=== PATIENT | female | born 1975 | race Caucasian/White ===

== ENCOUNTER 2023-04-10 12:48 | Emergency (ER) | payer SELFPAY, OTHER ==
[2023-04-10 12:49] VITALS: BP 145/110; PULSE 121; RESP 18; TEMP 35.9; O2SAT 98; BMI 25.9
[2023-04-10 13:09] VITALS: BP 139/90; PULSE 108; RESP 16; O2SAT 98
--- NOTE | 2023-04-10 13:45 | RAD_ITS ---
HISTORY: chest pain. TECHNIQUE: XR Chest 1 View. COMPARISON: None. FINDINGS: CARDIOMEDIASTINAL BORDERS: Cardiac silhouette within normal limits in size. Mediastinal contour unremarkable. LUNGS: Radiographically clear. PLEURA: No pleural effusion or pneumothorax seen. OSSEOUS STRUCTURES: Unremarkable. RAD/Chest 1 View (Portable) IMPRESSION: No acute cardiopulmonary process identified. Electronically Signed: Terri Mckay MD at 13:58 EDT ,
[2023-04-10 13:59] LABS: Absolute Lymphocyte Count 2.23 X10^3/uL (0.83-4.51); Absolute Neutrophil Count 4.9 X10^3/uL (2.0-7.7); Basophil# 0.05 X10^3/uL; Basophil% 0.6 % (0-1); Eosinophil# 0.44 X10^3/uL; Eosinophils% 5.3 % (0-5); Hemoglobin 15.9 g/dL (12.0-15.0); Lymphocyte # 2.23 X10^3/ul (0.83-4.51); Lymphocyte % 26.8 % (19-41); Mean Corp Hgb Conc 33.1 g/dL (32-36); Mean Corpuscular Hgb 30.4 pg (27.0-32.0); Mean Corpuscular Volume 91.8 fL (81-99); Mean Platelet Vol. 10.5 fl (6.2-12.0); Monocyte% 8.4 % (0-10); NRBC Flagged by Analyzer 0 % (0-5); Neutrophil # 4.85 X10^3/uL (2.7-7.7); Neutrophil % 58.3 % (47-70); Platelet Count 218 K/mm3 (150-450); RBC Distribution Width CV 12.3 % (11.6-14.6); RBC Distribution Width SD 41.4 fl (35.1-43.9); Red Blood Count 5.23 M/mm3 (4.2-5.4); White Blood Count 8.3 K/mm3 (4.4-11.0)
[2023-04-10 14:14] LABS: Anion Gap 12 (5-15); BUN 12 mg/dL (7-18); Calcium,Total 10.1 mg/dL (8.5-10.1); Chloride 112 mmol/L (98-107); EST Glomerular Filtration Rate 95 mL/min (>60); Est Glom Filt Rate - Afr Amer 115 mL/min (>60); Estimated Creatinine Clearance 98.69 ml/min; Glucose 174 mg/dL (74-106); Potassium 3.7 mmol/L (3.5-5.1); Sodium Level 137 mmol/L (136-145); Troponin-I HS (w/2H Reflex) 3 pg/mL (3.0-54.0)
--- NOTE | 2023-04-10 15:26 | ED.VIS.CHEST ---
HPI History of Present Illness Chief Complaint: Chest Pain Narrative Narrative: 47-year-old female presenting with chest pains which are intermittent. She initially stated that they have been happening for 4 to 5 days but after speaking with her these have been going on for months. She states that she has not seen her primary care physician for these issues. She also complains of bilateral leg pains which are progressive over the last couple of months. They are diffuse and circumferential. She does not know why she has this. Patient states that she does not any cardiac history. Denies fevers or chills. She states that they see a nurse practitioner for her diabetes and last time she was supposed to get blood work her nurse practitioner told her she probably had a cold or flu and told her we did not want to check labs at that time. Patient denies fever, chills, cough. She does time feel shortness of breath. [facility] Medical History Diabetes Allergy/AdvReac Type Severity Reaction Status Date / Time acetaminophen Allergy Shortness Verified 04/10/23 12:51 [From Pamprin Max] of breath aspirin [From Pamprin Max] Allergy Shortness Verified 04/10/23 12:51 of breath caffeine [From Pamprin Max] Allergy Shortness Verified 04/10/23 12:51 of breath Social History Smoking Status: Never smoker [facility] ED Constitutional Constitutional ED: Denies chills, fever(s) or sweats Eyes Eyes: Denies blurry vision or change in vision ENT ENT ED: Denies ear pain or sore throat Cardiovascular Cardiovascular: Reports chest pain and palpitations; Denies racing heartbeat Respiratory/Chest Respiratory/Chest: Reports dyspnea; Denies cough or sputum Gastrointestinal Gastrointestinal: Denies abdominal pain, constipation, diarrhea, nausea or vomiting Genitourinary Genitourinary ED: Denies dysuria, hematuria or urinary frequency Musculoskeletal Musculoskeletal: Reports other Details: Bilateral leg pain ; Denies arthralgias, myalgias or neck pain Integumentary Denies abscess, Abrasions or rash Neurologic Neurologic: Denies headache(s), paresthesias or weakness Psychiatric Psychiatric: Denies anxiety, depression, suicidal ideation or suicidal thoughts Endocrine Endocrinology: Denies polydipsia or polyuria EXAM Physical Exam Const Vital Signs: 04/10/23 12:49 04/10/23 13:09 04/10/23 13:09 Temperature 96.7 F L Temperature Source Temporal Pulse Rate 121 H 108 H Respiratory Rate 18 16 Respiratory Effort Normal Non-Labored Blood Pressure 145/110 H 139/90 H Blood Pressure Mean 121 106 Pulse Ox 98 98 Oxygen Delivery Method Room Air Room Air 04/10/23 13:44 Temperature Temperature Source Pulse Rate Respiratory Rate Respiratory Effort Blood Pressure Blood Pressure Mean Pulse Ox Oxygen Delivery Method Room Air Positive well nourished General Appearance ED: NAD HEENT Reports moist mucous membranes normocephalic and atraumatic Eyes PERRL and EOMs intact bilaterally Resp normal respiratory effort and clear to auscultation bilaterally Auscultation: Negative for rales, rhonchi or wheezes Cardio regular rhythm Rate: tachycardic Back/Spine no CVA tenderness Neuro oriented x3 and CN's II-XII intact bilaterally Sensorium / Orientation: awake and alert Motor Exam: strength 5/5 throughout Psych mental status grossly normal Skin no rashes or lesions noted Heart Score History: Slightly/Non-Suspicious ECG: Normal Age: >45 - <65 years Risk Factors: 1 or 2 Risk Factors Troponin: </= Normal Limit Score: 2 MDM MDM MDM Narrative Medical decision making narrative: [id number] female presenting with intermittent chest pains for months. Has not seen anybody for this. She states she tried to call her primary care provider today but he did not have any office times for her. He recommended she go to the emergency room when she went to the urgent care and urgent care sent her to the emergency room. Differential includes ACS, pneumonia, dehydration, electrolyte, anxiety, anemia. Considered PE however the patient is not having sharp pleuritic pain she is having some tightness that radiates into the left arm occasionally. Most the time is localized to the left side of the chest. CBC was obtained and shows no leukocytosis. Hemoglobin stable at 15.9. Platelets are normal at 218. Renal function and electrolytes unremarkable. High-sensitivity troponin is 3. EKG shows a sinus rhythm at 111 bpm on my interpretation. No evidence of ischemia. Chest x-ray on my interpretation shows no acute process. At this point the patient has a negative work-up. Her symptoms do sound chronic and I recommend she follow-up with her PCP. Patient was given Ultram here in the ER for leg pains but recommended she follow-up with her PCP for further treatment as it is likely neuropathy. Patient is understanding. Impression: 1. Chest pain 2. Weakness 3. Neuropathy Lab Data Attestation: I reviewed the patient's lab results. Labs: Laboratory Results - last 24 hr 04/10/23 13:20 WBC 8.3 RBC 5.23 Hgb 15.9 H Hct 48.0 H MCV 91.8 MCH 30.4 MCHC 33.1 RDW Std Deviation 41.4 RDW Coeff of Elias 12.3 Plt Count 218 MPV 10.5 Immature Gran % (Auto) 0.600 Neut % (Auto) 58.3 Lymph % (Auto) 26.8 [place] % (Auto) 8.4 Eos % (Auto) 5.3 H Baso % (Auto) 0.6 Absolute Neuts (auto) 4.9 Absolute Lymphs (auto) 2.23 Nucleated RBC % 0 Sodium 137 Potassium 3.7 Chloride 112 H Carbon Dioxide 13.0 L Anion Gap 12 BUN 12 Creatinine 0.70 Estim Creat Clear Calc 98.69 Est GFR (MDRD) Af Amer 115 Est GFR (MDRD) Non-Af 95 BUN/Creatinine Ratio 17.0 Glucose 174 H Calcium 10.1 Troponin I High Sens 3 Radiography Diagnostic Testing: Clinical Impression(s) from Imaging Studies Chest X-Ray 04/10/23 13:45 IMPRESSION: No acute cardiopulmonary process identified. Electronically Signed: Terri Mckay MD at 13:58 EDT Reading Location ID and State: [facility] / [place] Tel , Service support , Discharge Plan Triage Chief Complaint: Chest Pain ED Provider: Gerardo Flores Dx/Rx/DC Orders Instructions: ED Chest Pain, Uncertain Cause, ED Leg Spasm Primary Care Provider: Montrell Waldrop Referrals: Montrell Waldrop DO [Primary Care Provider] - Disposition Disposition: Home, Self Care
[2023-04-10] MEDS: traMADol 50 MG Tablet PO (15:29)
[2023-04-10 15:30] VITALS: BP 136/95; PULSE 107; RESP 13; O2SAT 96
[2023-04-10 15:53] LABS: Reflex Troponin-HS? (from REC) Y
--- NOTE | 2023-04-10 16:23 | ED.RN ---
PT AND WERE NOT HAPPY WITH DR GIBOSN AND FELT HE ACTED LIKE THEY SHOULD HAVE FOLLOWED UP WITH THEIR PCP SINCE THIS WAS ON GOING COMPLAINTS PER THE PATIENT. STATED PT DID NOT GET A STRESS TEST OR ECHO AND THAT WAS WHY THEY CAME. THIS NURSE EXPLAINED THE PROCESS OF TESTING AND WHAT TEST ARE NOT SOMETHING THAT IS DONE IN THE ER. ATTEMPTED TO EXPLAIN THE NEED FOR F/U AND HAVING THE SAME DR OVERSEE THESE TEST AND CONTINUE TESTING NEEDED. ATTEMPTED TO EXPLAIN THE LIMITATIONS OF TEST IN THE ER AND HOW MANY OF THESE TEST ARE PERFORMED OUTPATIENT. PT THEN EXPLAINED THAT YEARS AGO PT WAS SEEN AT [facility] AND WAS SENT HOME TO F/U. PT STATES THEY THEN WENT TO [place] AND TOLD THEM HOW THEY WERE SENT HOME FROM HERE AND [place] TOLD THEM THEY WOULD NOT SEND THEM HOME TIL ALL THE TEST WERE DONE AND SHE WAS ADMITTED TO HAVE A ECHO AND SUCH DONE. SHE ALSO STATED SHE HAD A SIMILAR SITUATION WITH HER GALLBLADDER. SHE WAS SENT HOME FROM [facility] AND WENT TO [place] AND HAD SURGERY. STATED THIS WAS PROBABLY 20 YRS AGO. UNFORTUNATELY THIS PT AND HER WERE UNRECEPTIVE TO ANY INFORMATION OR EXPLANATION. HE WAS GOING TO REFUSE TO LET REGISTRATION REGISTER THEM. WAS VERY ANGRY AND APPEARED TO NOT WANT TO TALK ABOUT ANYTHING. THIS NURSE TRIED TO GO OVER THE DISCHARGE INFORMATION AND EXPLAIN WHY SHE MAY WANT TO F/U WITH CARDIOLOGY. APOLOGIZED FOR THEM FEELING LIKE THE DR DIDN'T FEEL THEY NEEDED TO BE HERE AND THAT IT IS ALWAYS IMPORTANT TO HAVE YOUR HEART CHECKED OUT. BUT AGAIN REMINDED WE RULE OUT THE BIG STUFF AND THE REST IS F/U IF THINGS COME BACK APPEARING NORMAL.
== END 2023-04-10 16:39 | disposition home or self-care (01) ==
PROVIDERS: Emergency Provider Student in an Organized Health Care Education/Training Program; PCP Family Medicine; Visit Provider Student in an Organized Health Care Education/Training Program
DX: R07.9 Chest pain, unspecified (principal); E11.40 Type 2 diabetes mellitus with diabetic neuropathy, unspecified; R53.1 Weakness
CPT/HCPCS: 71045; 80048; 84484; 85025; 93005; 99284; A4216

== ENCOUNTER → 2023-04-22 | Outpatient (CLI) | payer SELFPAY ==
--- NOTE | 2023-04-22 13:51 | ECHOD_ITS ---
Reason For Study: CHEST PAIN/FATIGUE Procedure This was a 2D Doppler, Color Flow transthoracic echocardiogram. Exam performed in department. Left Ventricle Normal size and thickness. The left ventricular ejection fraction is 65 %. Stage 1 diastolic dysfunction. Right Ventricle Normal right ventricle. Atria The left and right atria are normal. Mitral Valve Mild mitral annular calcification. Tricuspid Valve Normal tricuspid valve. Aortic Valve Trisinus/trileaflet aortic valve. Pulmonic Valve The pulmonic valve is not well visualized. Great Vessels Normal sized aortic root. Pericardium/Pleural Trivial pericardial effusion. MMode/2D Measurements & Calculations LVIDd: 4.8 cm IVSd: 0.85 cm Ao root diam: 3.4 cm LVIDs: 3.1 cm LVPWd: 0.78 cm RVDd: 3.2 cm FS: 34.5 % LAV(MOD-bp): 34.9 ml LVAd ap4: 21.0 cm2 LVAd ap2: 19.7 cm2 LAV(MOD-bp) Indexed: 18.7 ml/m2 LVLd ap4: 7.3 cm LVLd ap2: 8.0 cm LAV(MOD-sp2): 34.3 ml EDV(MOD-sp4): 49.4 ml EDV(MOD-sp2): 39.7 ml LAV(MOD-sp4): 34.4 ml EDV(sp4-el): 51.0 ml EDV(sp2-el): 41.3 ml LVAs ap4: 13.1 cm2 LVAs ap2: 11.0 cm2 LVLs ap4: 6.6 cm LVLs ap2: 6.1 cm ESV(MOD-sp4): 23.0 ml ESV(MOD-sp2): 17.4 ml ESV(sp4-el): 22.3 ml ESV(sp2-el): 16.9 ml EF(MOD-sp4): 53.5 % EF(MOD-sp2): 56.2 % EF(sp4-el): 56.4 % SV(MOD-sp4): 26.5 ml SV(MOD-sp2): 22.3 ml SV(sp4-el): 28.7 ml LA dimension(2D): 3.0 cm LA A4 area: 15.2 cm2 RA A4 area: 13.6 cm2 TAPSE: 2.4 cm Time Measurements MV dec time: 0.23 sec Doppler Measurements & Calculations MV E max ernesto: 50.2 cm/sec Lat Peak E' Ernesto: 11.8 cm/sec Med Peak E' Ernesto: 10.5 cm/sec MV A max ernesto: 64.7 cm/sec E/E' lat: 4.3 E/E' med: 4.8 MV E/A: 0.78 MV V2 max: 75.6 cm/sec MV P1/2t max ernesto: 57.4 cm/sec Ao V2 max: 131.4 cm/sec MV max P.3 mmHg MV P1/2t: 79.3 msec Ao max P.9 mmHg MV V2 mean: 43.9 cm/sec MV dec slope: 212.1 cm/sec2 Ao V2 mean: 93.9 cm/sec MV mean P.86 mmHg Ao mean P.0 mmHg MV V2 VTI: 15.1 cm MVA(P1/2t): 2.8 cm2 Ao V2 VTI: 25.3 cm AV (velocity ratio): 0.80 LV V1 max: 111.0 cm/sec PA V2 max: 79.1 cm/sec LV V1 max P.9 mmHg PA V2 mean: 58.2 cm/sec LV V1 mean P.7 mmHg LV V1 mean: 75.9 cm/sec LV V1 VTI: 20.2 cm ECHO/Echo Complete Interpretation Summary The left ventricular ejection fraction is 65 %. Stage 1 diastolic dysfunction. Mild mitral annular calcification. Ordering Physician: Neva Delgado Referring Physician: Neva Delgado Performed By: Christina Batista, MARK, RVT
== END | disposition home or self-care (01) ==
PROVIDERS: PCP Family Medicine; Referring Provider Nurse Practitioner Family; Visit Provider Nurse Practitioner Family
DX: R07.9 Chest pain, unspecified (principal); R53.83 Other fatigue
CPT/HCPCS: 93306

== ENCOUNTER → 2023-04-28 | Outpatient (CLI) | payer OTHER, SELFPAY ==
--- NOTE | 2023-04-28 15:00 | STRESSREP ---
Stress Test Report Exercise stress test. 47-year-old lady with a history of chest pain and fatigue Stress protocol: Resting EKG demonstrates normal sinus rhythm with a rate of 83 bpm resting blood pressure is 130/86 mmHg. The patient exercised according to the regular Jhonathan protocol for a total duration of 3 minutes and 27 seconds attaining a maximum heart rate of 153 bpm which was 87% of maximum predicted heart rate; the maximum workload was 5.6 metabolic equivalents. At rest there were no ST or T wave changes noted to suggest ischemia and at peak exercise upsloping ST changes only were noted which did not meet the criteria for ischemia. No clinical angina was noted the test was terminated due to the target heart rate being achieved/fatigue. The peak blood pressure was 168/90 mmHg. Rate-pressure product was 23,600. Patient did complain of overall feeling weak and was not able to exercise very much. Conclusion: Exercise stress test with no EKG criteria or symptoms of ischemia at a low to moderate workload. This could affect sensitivity for detection of ischemia.
== END | disposition home or self-care (01) ==
LOC: CVS 10:56
PROVIDERS: PCP Family Medicine; Referring Provider Nurse Practitioner Family; Visit Provider Nurse Practitioner Family
DX: R07.9 Chest pain, unspecified (principal); R53.83 Other fatigue
CPT/HCPCS: 93017